=== PATIENT | female | born 1965 | race Caucasian/White ===

== ENCOUNTER 2018-09-30 09:16 | Outpatient (REF) | payer BC, SELFPAY ==
--- NOTE | 2018-09-30 08:30 | PAPFT_PTH ---
PATIENT: Susan Harp LOC: [facility] U#:[id number] AGE/SX: 53/F ROOM: RE09/30/[address]: Susana Meyers : 1965 BED: DIS: 09/30/2018 SPEC #: [id number] RECD: 10/01/18 12:40 STATUS: MARLON MCCOLLUM #: [id number] KWADWO: 09/30/18 08:[address]: Susana Meyers DEPT: [facility] Cytology RECD BY: Lori Beal Tissues: 1 - CX/ENDOCX FOR PAP SMEARS Procedures: PAP THIN PREP/UVM Screening HPV DNA PROBE Comments: [id number]
[2018-09-30 22:07] LABS: ALT 20 U/L (12-78); AST 20 U/L (15-37); Alkaline Phosphatase 81 U/L (46-116); Anion Gap 12.9 mmol/L (3-11); BUN 15 mg/dL (7-18); Bilirubin, Total 0.3 mg/dL (0.2-1.0); CO2 25.1 mmol/L (21.0-32.0); CREATININE 0.66 mg/dL (0.55-1.02); Calcium 9.1 mg/dL (8.5-10.1); Calculated LDL 117 mg/dL; Chloride 106 mmol/L (98-107); Cholesterol 227 mg/dL (50-200); Glucose 86 mg/dL (70-100); HDL Cholesterol 90 mg/dL (40-60); Potassium 5.2 mmol/L (3.5-5.1); Sodium 144 mmol/L (136-145); Total Protein 7.1 g/dL (6.4-8.2); Triglyceride 104 mg/dL (30-150)
== END 2018-09-30 09:36 ==
LOC: NCHCN 09:16
PROVIDERS: PCP Physician Assistant Medical; Visit Provider Physician Assistant Medical
DX: Z00.00 Encounter for general adult medical examination without abnormal findings (principal); Z13.220 Encounter for screening for lipoid disorders; Z13.228 Encounter for screening for other metabolic disorders; Z12.4 Encounter for screening for malignant neoplasm of cervix; Z11.51 Encounter for screening for human papillomavirus (HPV)
CPT/HCPCS: 80053; 80061; 83721; 88142; 87624

== ENCOUNTER 2018-10-18 07:00 | Outpatient (CLI) | payer BC, SELFPAY ==
--- NOTE | 2018-10-18 08:41 | DI.MRI_ITS ---
SYMPTOM/DIAGNOSIS: LUMBAR BACK PAIN WITH RADICULOPATHY M54.16 MRI LUMBAR SPINE: Routine noncontrast examination. No priors for comparison. The conus medullaris has a normal appearance and location. There is a left convex scoliotic curvature of the lumbar spine At L5-S1 there is disc desiccation. There is a diffuse disc bulge. There are hypertrophic changes of the facets. No significant central spinal canal stenosis seen. No right neural foraminal stenosis is present. Moderately severe left neural foraminal stenosis is present with compression of the exiting nerve root. At L4-L5 there is disc desiccation and a mild diffuse disc bulge. There are hypertrophic changes of the facets and ligamentum flavum causing mild narrowing of the central spinal canal. No significant neural foraminal stenosis is seen. At L3-L4 there is degenerative disc disease with a mild diffuse disc bulge. There are degenerative changes of the facets causing mild narrowing of the central spinal canal. No focal disc herniation is seen. No significant neural foraminal stenosis is present. At L2-L3 there is no focal disc herniation, central spinal canal or neural foraminal stenosis. At L1-L2 there is no focal disc herniation, central spinal canal or neural foraminal stenosis. IMPRESSION: 1. Moderately severe left convex scoliotic curvature of the lumbar spine. 2. Multi-level degenerative changes in the lumbar spine. 3. Degenerative changes at L5-S1 causing moderately severe left neural foraminal stenosis with compression of the exiting nerve root. Please see the above discussion for complete details.
== END 2018-10-18 07:20 ==
PROVIDERS: PCP Physician Assistant Medical; Visit Provider Physician Assistant Medical
DX: M54.16 Radiculopathy, lumbar region (principal); M41.86 Other forms of scoliosis, lumbar region; M47.27 Other spondylosis with radiculopathy, lumbosacral region; M51.16 Intervertebral disc disorders with radiculopathy, lumbar region; M99.83 Other biomechanical lesions of lumbar region
CPT/HCPCS: 72148

== ENCOUNTER 2018-10-21 00:57 | Outpatient (CLI) | payer BC, SELFPAY | END 2018-10-21 01:17 | PROVIDERS: PCP Physician Assistant Medical; Visit Provider Physician Assistant Medical | DX: R69 Illness, unspecified (principal) ==

== ENCOUNTER 2019-09-24 09:49 | Outpatient (CLI) | payer BC, SELFPAY ==
--- NOTE | 2019-09-24 | DI.RAD_ITS ---
EXAM: XR FOOT RT COMPLETE CLINICAL HISTORY: RT FOOT PAIN M79.671 TECHNIQUE: COMPARISON: No exams were available for comparison FINDINGS: Three views were obtained. There are mild degenerative changes of IP joints of the foot. Alignment appears unremarkable. No other significant bony or soft tissue abnormality seen. IMPRESSION:
== END 2019-09-24 10:09 ==
PROVIDERS: PCP Physician Assistant Medical; Visit Provider Physician Assistant Medical
DX: M79.671 Pain in right foot (principal); M19.071 Primary osteoarthritis, right ankle and foot
CPT/HCPCS: 73630

== ENCOUNTER 2021-03-23 01:59 | Outpatient (CLI) | payer BC, SELFPAY ==
--- NOTE | 2021-03-23 14:00 | DI.MAMMO_ITS ---
Exam(s) MAMMO SCREENING EXAM: MAMMO SCREENING CLINICAL HISTORY: SCREENING, HEALTH MAINTENANCE EXAM, Z00.8 TECHNIQUE: Bilateral full field digital CC and MLO mammographic images were obtained with 3D tomosyn thesis and utilizing computer aided detection (CAD). COMPARISON: Available for comparison. FINDINGS: Masses/Architectural Distortion: There are areas of asymmetric density in the upper breasts bilateral ly seen on the MLO views. These areas may represent fibroglandular tissue but spot compression views are requested for further evaluation. Microcalcifications: No suspicious pleomorphic-type are seen. Skin Thickening/Nipple Retraction: None. IMPRESSION: 1. Asymmetric densities in the upper lobes left and right breast seen on the MLO views. 2. Spot compression views are requested for further evaluation, ultrasound may be indicated at that t luiza. BI-RADS Category 0 - Assessment Incomplete: Need additional imaging evaluation Breast Density - Category C - Heterogeneously dense Breast density category C or D implies that the patient has dense breast tissue. Dense breast tissue is very common and is not abnormal but dense breast tissue can make it harder to find cancer on a ma mmogram. Also, dense breast tissue may increase their breast cancer risk. This information about the result of the mammogram report was provided to the patient to raise their awareness. Use this report when you speak with the patient about their risks for breast cancer, which includes their family hist ory. At that time, you may recommend for more screening tests (Ultrasound or MRI) as they might be us eful based on their risk. A negative radiographic report should not delay biopsy if a dominant or clinically suspicious mass is present. Up to ten percent of cancers are not identified on mammography. A negative report may reinforce clinical impression. Adenosis and dense breasts may obscure an underlying neoplasm. False positive reports average 6 to 10%. Patient will receive a letter notifying them of these results.
== END 2021-03-23 02:19 ==
PROVIDERS: PCP Physician Assistant Medical; Visit Provider Physician Assistant Medical
DX: Z12.31 Encounter for screening mammogram for malignant neoplasm of breast (principal); R92.8 Other abnormal and inconclusive findings on diagnostic imaging of breast
CPT/HCPCS: 77063; 77067

== ENCOUNTER 2021-04-12 01:19 | Outpatient (CLI) | payer BC, SELFPAY ==
--- NOTE | 2021-04-12 | DI.MRI_ITS ---
Exam(s) MR LUMBAR SPINE WO EXAM: MR LUMBAR SPINE WO CLINICAL HISTORY: LUMBAR BACK PAIN W/RADICULOPATHY M54.16. TECHNIQUE: Multiplanar multisequence MRI was performed. FINDINGS: MR examination lumbosacral spine was performed according to the usual protocol. There is a pronounce d left convex lumbar scoliosis. There are severe hypertrophic degenerative changes of the facet join ts at L5-S1 and moderate hypertrophic degenerative facet changes throughout the remaining lumbar spin e. The conus medullaris appears intact. There is no evidence of a central canal spinal stenosis or disc herniation in the region surveyed. There is mild neural foraminal narrowing at L4-5 and L5-S1 on the left. No other significant neural foraminal narrowing seen. IMPRESSION: Scoliosis and severe facet degenerative changes, particularly at L5-S1. Mild left-sided neural samantha inal narrowing at L4-5 and L5-S1. Little interval change in appearance of the spine in comparison wi th prior examination of September 2018. DATA REPOSITORY:
== END 2021-04-12 01:39 ==
PROVIDERS: PCP Physician Assistant Medical; Visit Provider Physician Assistant Medical
DX: M54.16 Radiculopathy, lumbar region (principal); M41.87 Other forms of scoliosis, lumbosacral region; M47.897 Other spondylosis, lumbosacral region
CPT/HCPCS: 72148

== ENCOUNTER 2021-04-13 01:22 | Outpatient (CLI) | payer BC, SELFPAY ==
--- NOTE | 2021-04-13 | DI.US_ITS ---
Exam(s) US BREAST LT COMPLETE US BREAST RT COMPLETE MG MAMMO SCREEN CALL BACK BI EXAM: MG MAMMO SCREEN CALL BACK BI AND BILTERAL COMPLETE BREAST ULTRASOUND CLINICAL HISTORY: ASYMMETRIC DENSITIES BILAT BREAST. TECHNIQUE: BILATERAL spot mammographic images obtained with 3D tomosynthesisand utilizing computer a ided detection (CAD). . Complete BILATERAL breast Ultrasound was also performed, including all 4 quadrants, the retroareolar regions, and both axillary regions. COMPARISON: Prior mammograms were reviewed. This additional imaging was performed due to findings described on the recent screening mammogram of 03/23/2021. FINDINGS: Additional mammographic views performed todayrender this area less concerning and similar to the prio r mammogram study of 2013.. Ultrasound performed today reveals no evidence of solid or significant cystic lesions in all 4 quadra nts of both breasts. Also no findings in the immediate retroareolar regions.. Both axillary regions were also scanned and negative for significant lymphadenopathy. IMPRESSION: Dense bilateral fibroglandular tissue. No obvious radiographic evidence of malignancy. Negative a bilateral complete breast ultrasound exam. Appropriate follow-up is to keep this patient on a yearly mammogram schedule, with earlier imaging i f a self detected breast change is noted.. The patient was informed of these findings and recommendations prior to leaving the department today. BI-RADS Category 2 - Benign Findings Breast Density - Category C - Heterogeneously dense Breast density Category C or D implies that the patient has dense breast tissue. Dense breast tissue can make it harder to find cancer on a mammogram. Dense breast tissue is also associated with an incr eased risk of breast cancer. This information about the result of the mammogram report was provided to the patient to raise their awareness. Use this report when you speak with the patient about their risks for breast cancer, which includes their family history. At that time, you may recommend additional screening tests (Ultrasoun d or MRI) as these tests may add significant information. A negative radiographic report should not delay biopsy if a dominant or clinically suspicious mass is present. Up to ten percent of cancers are not identified on mammography. A negative report may reinforce clinical impression. Adenosis and dense breasts may obscure an underlying neoplasm. False positive reports average 6 to 10%. Patient will receive a letter notifying them of these results.
== END 2021-04-13 01:42 ==
PROVIDERS: PCP Physician Assistant Medical; Visit Provider Physician Assistant Medical
DX: R92.8 Other abnormal and inconclusive findings on diagnostic imaging of breast (principal)
CPT/HCPCS: 76642; 77063; 77067

== ENCOUNTER 2021-11-02 09:52 | Outpatient (CLI) | payer BC, SELFPAY ==
--- NOTE | 2021-11-02 06:00 | DI.RAD_ITS ---
Exam(s) XR PAIN CLINIC LUMBAR SP 2V EXAM: XR PAIN CLINIC LUMBAR SP 2V CLINICAL HISTORY: Dx: Lumbar Spondylosis. TECHNIQUE: Fluoroscopy was provided for the referring physician for guidance with performing pain cl inic injection procedure. COMPARISON: No exams were available for comparison FINDINGS: Please see procedure note for details. Fluoro time: 47.4 seconds RADIATION DOSE DELIVERED: Marur=5.61 mGy
[2021-11-02 10:00] VITALS: BP 132/84; PULSE 93; RESP 20; TEMP 36.6; O2SAT 98
--- NOTE | 2021-11-02 10:33 | PDOC.PAIN ---
Pain Clinic Procedure Note Procedure Note Procedure Note: Lumbar/Sacral Medial Branch Blocks Susan Harp has been referred to the [facility] for lumbar/sacral medial branch blocks. COMMENTS: She was previously evaluated in our office. Pre-procedure pain VAS = 5/10. Dx: Lumbosacral spondylosis without myelopathy Patient was interviewed and the medical record reviewed. There were no medical, pharmacologic, radiographic or other structural contraindications to attempting fluoroscopically guided local anesthetic lumbar/sacral medial branch blocks. Risks and expected side effects as well as potential benefit of the procedure were reviewed and voiced concerns addressed. The printed consent form was signed and witnessed. Standard time-out procedure was performed. Patient was placed in the prone position on the fluoroscopy table and automated blood pressure cuff and pulse oximeter applied. The skin entry points for approaching the anatomic target points of the segmental medial branches of left L2, L3, L4, L5 were identified with anfluoroscopy and marked. Following thorough Chlorhexadine preparation of the skin and draping and 1% lidocaine infiltration of the skin entry points and subcutaneous tissues, a 25 gauge 3.5 spinal needle was placed under fluoroscopic guidance down on to the target point for each respective segmental medial branch.Position was confirmed in A/P, oblique and lateral views with 0.25ml of omnipaque 240. At this point I injected 0.5ml of 0.5% Bupivacaine at each sensory branch. Vital signs were stable throughout the procedure and were as recorded in the docflowsheet by the nursing staff. Follow up plans and appointments were discussed and was instructed to keep careful note of how the usual pain was modified by these injections. Specifically was asked to keep a pain diary for the next 24 hours using a numeric pain scale of 0-10 and report these results at the follow-up visit. Post procedure instruction was given as documented in the nursing documentation and having met discharge criteria. Patient was discharged from the [facility] Management [facility]. Based on the medial branches blocked today, if the patient has adequate relief and we are able to proceed to radiofrequency ablation, the treatment should result in the denervation of the left L3-L4, L4-L5, and L5-S1 FACET JOINTS. We would expect to denervate a total of 3 facets during the radiofrequency ablation. COMMENTS: Post-procedure pain VAS was 0/10. Adiel Mayer DO, MPH [facility]-Pain Management [facility] for [facility] CC: Susana Meyers
[2021-11-02] MEDS: Bupivacaine 0.5% Pres-Free 10 ML VIAL IJ (10:34)
[2021-11-02] MEDS: Omnipaque 240 MG/ML 50 ML BTL IJ (10:34)
[2021-11-02 10:36] VITALS: BP 133/76; PULSE 89; RESP 19; O2SAT 97
== END 2021-11-02 09:53 | disposition home or self-care (01) ==
LOC: PC 09:53
PROVIDERS: PCP Physician Assistant Medical; Visit Provider Preventive Medicine Occupational Medicine
DX: M47.817 Spondylosis without myelopathy or radiculopathy, lumbosacral region (principal)
CPT/HCPCS: 64493; 64494; 64495; 72100; Q9967

== ENCOUNTER 2021-12-01 09:43 | Outpatient (CLI) | payer BC, SELFPAY ==
--- NOTE | 2021-12-01 06:00 | DI.RAD_ITS ---
Exam(s) XR PAIN CLINIC LUMBAR SP 2V EXAM: XR PAIN CLINIC LUMBAR SP 2V CLINICAL HISTORY: Dx: Lumbar Spondylosis TECHNIQUE: 2D and realtime digital imaging was performed. Radiologist not present. CONTRAST MATERIAL: None. COMPARISON: No exams were available for comparison FINDINGS: Fluoroscopy was provided for pain management therapy. Please refer to procedure report or details. Total fluoroscopy time 39 seconds Cumulative dose: Ka,r=4.40 mGy IMPRESSION: RADIATION DOSE DELIVERED:
[2021-12-01 09:50] VITALS: BP 143/83; PULSE 101; RESP 20; TEMP 36.4; O2SAT 98
--- NOTE | 2021-12-01 10:18 | PDOC.PAIN_ITS ---
Pain Clinic Procedure Note Procedure Note Procedure Note: Lumbar/Sacral Medial Branch Blocks Susan Harp has been referred to the [facility] for lumbar/sacral medial branch blocks. COMMENTS: She did very well with her first LMBBs on 11/02/21. Pre-procedure pain VAS was 4/10. Dx: Lumbosacral spondylosis without myelopathy Patient was interviewed and the medical record reviewed. There were no medical, pharmacologic, radiographic or other structural contraindications to attempting fluoroscopically guided local anesthetic lumbar/sacral medial branch blocks. Risks and expected side effects as well as potential benefit of the procedure were reviewed and voiced concerns addressed. The printed consent form was signed and witnessed. Standard time-out procedure was performed. Patient was placed in the prone position on the fluoroscopy table and automated blood pressure cuff and pulse oximeter applied. The skin entry points for approaching the anatomic target points of the segmental medial branches of the left L2, L3, L4 and L5DR were identified with anfluoroscopy and marked. Following thorough Chlorhexadine preparation of the skin and draping and 1% lidocaine infiltration of the skin entry points and subcutaneous tissues, a 22 gauge spinal needle was placed under fluoroscopic guidance down on to the target point for each respective segmental medial branch.Position was confirmed in A/P, oblique and lateral views with 0.25ml of omnipaque 240. At this point I injected 0.5ml of 2% Lidocaine at each segmental sensory nerve. Vital signs were stable throughout the procedure and were as recorded in the docflowsheet by the nursing staff. Follow up plans and appointments were discussed and was instructed to keep careful note of how the usual pain was modified by these injections. Specifically was asked to keep a pain diary for the next 24 hours using a numeric pain scale of 0-10 and report these results at the follow-up visit. Post procedure instruction was given as documented in the nursing documentation and having met discharge criteria. Patient was discharged from the [facility]. Based on the medial branches blocked today, if the patient has adequate relief and we are able to proceed to radiofrequency ablation, the treatment should result in the denervation of the left L3-L4, L4-L5 and L5-S1 FACET JOINTS. We would expect to denervate a total of 3 facets during the radiofrequency ablation. COMMENTS: Post-procedure pain VAS was 0/10. Adiel Mayer DO, MPH [facility]-Pain Management [facility] CC: Susana Meyers
[2021-12-01] MEDS: Lidocaine 2% Pres-Free 5 ML VIAL IJ (10:24)
[2021-12-01 10:25] VITALS: BP 143/90; PULSE 92; RESP 19; O2SAT 98
[2021-12-01] MEDS: Omnipaque 240 MG/ML 50 ML BTL IJ (10:25)
== END 2021-12-01 09:44 | disposition home or self-care (01) ==
LOC: PC 09:43
PROVIDERS: PCP Physician Assistant Medical; Visit Provider Preventive Medicine Occupational Medicine
DX: M47.817 Spondylosis without myelopathy or radiculopathy, lumbosacral region (principal)
CPT/HCPCS: 64493; 64494; 72100; Q9967

== ENCOUNTER 2021-12-22 10:11 | Emergency (ER) | payer BC, SELFPAY ==
--- NOTE | 2021-12-22 10:15 | DI.RAD_ITS ---
Exam(s) XR CHEST 2V PA LATERAL EXAM: XR CHEST 2V PA LATERAL CLINICAL HISTORY: Cough, COPD TECHNIQUE: 2D digital imaging was performed. COMPARISON: No exams were available for comparison FINDINGS: HEART: Normal size. Aorta: PULMONARY VASCULATURE: Normal. LUNGS: Hyperinflated. Fibrotic changes. No superimposed infiltrate.. PLEURAL SPACE: No pleural effusion or pneumothorax. BONE:Severe scoliosis IMPRESSION: No acute abnormality. DATA REPOSITORY: RADIATION DOSE DELIVERED:
[2021-12-22 10:16] VITALS: BP 135/83; PULSE 100; RESP 17; TEMP 36.5; O2SAT 98
--- NOTE | 2021-12-22 10:28 | ED.GENADUL_ITS ---
Discharge Plan Disposition Patient Disposition: HOME Condition: Stable Discharge Details Clinical Impression: Acute bronchitis with COPD Primary Care Provider: Susana Meyers ED Provider: Alexis Bland Home Meds and New Rx's Prescriptions: New doxycycline hyclate 100 mg capsule 100 mg PO BID 10 Days Qty: 20 0RF prednisone 50 mg tablet 50 mg PO DAILY 5 Days Qty: 5 0RF Continued ibuprofen 200 mg Tablet 200 mg PO Q6H PRN fluoxetine [Prozac] 40 MG capsule 40 mg PO DAILY Label Comments: Taking a total of 60mg QD fluoxetine 20 mg capsule 20 mg PO DAILY Label Comments: Taking a total of 60mg QD venlafaxine 75 mg Tablet 75 mg PO DAILY albuterol sulfate 8.5 GM HFA aerosol inhaler 2 puff Inhalation Q4H PRN PRNQty: 1 0RF (DME) AeroChamber Plus Z Stat Sm Msk 1 EACH spacer 1 ea Miscellaneous DAILY PRN Qty: 1 0RF Discharge Instructions Instructions: Acute Bronchitis (ED) Additional Instructions: Home to rest today. Small, frequent to the fluids to maintain hydration Please take prednisone as prescribed until finished. Doxycycline as prescribed for its entire course. Continue efforts to decrease tobacco use. Return to the emergency room for any acute concern. Follow-up with regular doctor if not improved in 5 to 7 days time. Medical Decision Making This is a 56-year-old female, smoker with a history of COPD who presents with cough, congestion, mild shortness of breath over 1 month's time. She has not had chest pain. She is oxygenating normally, speaking in full sentences and does not demonstrate wheezing on exam. Differential diagnosis includes mild exacerbation of COPD, bronchitis, must rule out underlying pneumonia. Patient referred for x-ray without evidence of focal infiltrate or pneumothorax. I will place her on a burst of steroid as well as oral antibiotics. She is stable and appropriate for discharge at this time HPI General Mode of arrival: ambulatory . Date/Time Provider Initiated Documentation: 12/22/21 10:14 . Limitations to Documentation: no limitations . Information obtained by: patient . History of Present Illness 56 year old F presents to the emergency department with the chief complaint of Cough, congestion, mild shortness of breath, described as mild, and is localized to the chest. Patient reports no radiation. Patient started experiencing this week(s) and it has been intermittent. No relieving factors improve symptom(s), No exacerbating factors reported . Patient notes cough; denies chest pain and fever/chills. Patient did receive the following treatments prior to arrival, none Related Data Home Medications Medication Instructions Recorded Confirmed albuterol sulfate 90 mcg/actuation 2 puff inhalation Q4H PRN PRN ##1 03/30/14 12/01/21 aerosol inhaler inhalational spacing device ##1 03/30/14 09/14/21 (AeroChamber Plus Z Stat Small Mask) Prozac 40 mg capsule (fluoxetine) 40 mg PO DAILY 09/04/17 09/14/21 fluoxetine 20 mg capsule 20 mg PO DAILY 05/03/21 09/14/21 ibuprofen 200 mg tablet 200 mg PO Q6H PRN 09/01/21 12/01/21 venlafaxine 75 mg tablet 75 mg PO DAILY 10/24/21 12/01/21 doxycycline hyclate 100 mg capsule 100 mg PO BID 10 days #20 caps 12/22/21 prednisone 50 mg tablet 50 mg PO DAILY 5 days #5 tabs 12/22/21 Previous Rx's Medication Instructions Recorded albuterol sulfate 90 mcg/actuation 2 puff inhalation Q4H PRN PRN ##1 03/30/14 aerosol inhaler inhalational spacing device ##1 03/30/14 (AeroChamber Plus Z Stat Small Mask) doxycycline hyclate 100 mg capsule 100 mg PO BID 10 days #20 caps 12/22/21 prednisone 50 mg tablet 50 mg PO DAILY 5 days #5 tabs 12/22/21 Allergies Allergy/AdvReac Type Severity Reaction Status Date / Time No Known Allergies Allergy Unverified 12/01/21 09:49 General Stated Complaint: RespSymp SHI: 4 Review of Systems Narrative: Using home albuterol. No high fevers. Congested with intermittent production of sputum. Denies chest pain. 6 systems reviewed and otherwise negative PFSH All Active Problems (Updated 12/22/21 @ 10:48 by Alexis Bland MD) Acute bronchitis with COPD (Acute) Lumbosacral spondylosis without myelopathy (Acute) COPD (chronic obstructive pulmonary disease) (Acute) Screening for colon cancer (Acute) Medical History Cyst, jaw Depression Guaiac positive stools Lumbar radiculopathy Ovarian cyst Rectal bleeding Weight loss Surgical History left oophorectomy and salpingectomy (cysts) tubal ligation Family History Sister Heart disease Valvular heart disease Daughter No problems noted. Daughter No problems noted. Social History Smoking/Tobacco Use Status: Current every day Tobacco Type: cigarettes Smoking packs per day: 0.25 Smoking cigarettes per day: 5.0 Years smoked: 42 Smoking pack-years: 10.50 Smoking risk assessment performed?: Yes Alcohol Intake: current Alcohol Intake frequency: holidays/special occasions only Drug use: Never Substance use type: does not use Do you feel safe at home: Yes Do you feel safe in your relationship?: Yes Exam Narrative Exam Narrative: GEN: awake, alert, oriented 3. Pleasant, well groomed, interactive. HEAD: Normocephalic, atraumatic ENT: Mucous membranes moist, oropharynx unremarkable, External ear exam unremarkable EYES: PERRL, EOMI NECK: Full ROM, no MARIAH, no menigismus CHEST/RESP: Nontender, clear to auscultation bilateral, slightly diminished but no wheezing, cough noted. CARDIOVASCULAR: RRR, no murmur, rub karely. 2+ Rad pulse bilateral ABDOMEN: Soft, nontender, no mass. +Bowel sounds EXT: Full ROM, no edema, no rash Neuro: Grossly normal neurologic exam, conversant, interactive. Psych: Speech fluent, thoughts congruent, affect normal Course Vital Signs Vital signs: Vital Signs Temperature 36.5 C 12/22/21 10:16 Pulse 100 H 12/22/21 10:16 Respiratory Rate 17 12/22/21 10:16 Blood Pressure 135/83 12/22/21 10:16 Pulse Oximetry 98 12/22/21 10:16 Temperature 36.5 C 12/22/21 10:16 Temperature Source Temporal Artery Scan 12/22/21 10:16 Pulse 100 H 12/22/21 10:16 Respiratory Rate 17 12/22/21 10:16 Respiratory Effort Non-Labored 12/22/21 10:21 Blood Pressure 135/83 12/22/21 10:16 Blood Pressure Position Sitting 12/22/21 10:16 Pulse Oximetry 98 12/22/21 10:16 Oxygen Delivery Method Room Air 12/22/21 10:16 Oxygen Flow Rate 0 12/22/21 10:16 Pain Level 0 12/22/21 10:16
== END 2021-12-22 11:09 | disposition home or self-care (01) ==
PROVIDERS: Emergency Provider Emergency Medicine; PCP Physician Assistant Medical
DX: J44.0 Chronic obstructive pulmonary disease with (acute) lower respiratory infection (principal); J20.9 Acute bronchitis, unspecified; F17.210 Nicotine dependence, cigarettes, uncomplicated
CPT/HCPCS: 99283; 71046; 99284

== ENCOUNTER 2022-01-18 10:47 | Outpatient (CLI) | payer BC, SELFPAY ==
--- NOTE | 2022-01-18 06:00 | DI.RAD_ITS ---
Exam(s) XR PAIN CLINIC LUMBAR SP 2V EXAM: XR PAIN CLINIC LUMBAR SP 2V CLINICAL HISTORY: Dx: Lumbar Spondylosis TECHNIQUE: 2D and realtime digital imaging was performed. Radiologist not present. CONTRAST MATERIAL: None. COMPARISON: No exams were available for comparison FINDINGS: Fluoroscopy was provided for pain management therapy. Please refer to procedure report or details. Cumulative dose: Ka,r=7.24 mGy IMPRESSION: RADIATION DOSE DELIVERED:
[2022-01-18 10:51] VITALS: BP 128/76; PULSE 103; RESP 20; TEMP 36.2; O2SAT 97
[2022-01-18] MEDS: Midazolam 2 MG/2 ML VIAL IVP (11:34)
[2022-01-18] MEDS: fentaNYL 100 MCG/2 ML VIAL IVP (11:34)
[2022-01-18] MEDS: Lactated Ringers 500 ML 80 ML IV (11:35)
[2022-01-18 12:04] VITALS: BP 131/86; PULSE 94; RESP 21; O2SAT 98
[2022-01-18] MEDS: Bupivacaine 0.5% Pres-Free 10 ML VIAL IJ (12:14)
[2022-01-18] MEDS: Lidocaine 2% Pres-Free 5 ML VIAL IJ (12:14)
[2022-01-18] MEDS: methylPREDNISolone ACETATE 40 MG/ML VIAL IJ (12:14)
--- NOTE | 2022-01-18 12:29 | PDOC.PAIN ---
Date of service: 01/18/22 Time of Service: 12:33 Pain Clinic Procedure Note Procedure Note Procedure Note: Left Lumbar Radiofrequency with Coolief Machine PROCEDURE NOTE Date of Service: January 18, 2022 Patient: Susan Harp Provider: Adiel Mayer DO, MPH Pre Operative Diagnosis: Lumbosacral Spondylosis without Myelopathy Post Operative Diagnosis: Same Pre procedure pain; VAS= 6/10 PROCEDURE: Radiofrequency Ablation of medial branches - LT L2 L3 L4 L5 and lateral branch of the left S1. Susan Harp was brought into the fluoroscopy suite and positioned into the prone position on the fluoroscopy table and allowed to adjust to a position of comfort. A grounding pad was placed on the left thigh. The lumbar region was widely prepped with a chloraprep solution, allowed to air dry and draped in standard sterile surgical fashion. Local anesthesia was provided by [4 mL of 2% Lidocaine delivered with a 25g needle. A 17g 100 mm radiofrequency introducer needle was placed to the planned anatomic targets guided with intermittent fluoroscopy with a perpendicular approach to terminally place at the junction of the superior articular process and the transverse process of the left L3 L4 L5, the base of the sacral ala on the left for the L5 medial branch nerve and the area between base of the sacral ala to the S1 foramen on the left. The stylets were removed and radiofrequency probes with a 4mm active tip were then inserted. Needle tip position of the probes was verified in the AP, oblique, and lateral views. At each site, the medial branch nerve was stimulated at 2 Hz to a maximum 1-2 volts determined to finalize safe needle and electrode placement. The patient was awake and responsive during this portion of the procedure. Each target was anesthetized with 1-2 mL of 2% Lidocaine for anesthesia for lesioning and then each target was lesioned at 80 degrees Celsius for 2 minutes and 30 seconds. Tissue impedences were noted to be between 250 and 500 Ohms. Electrodes and needles were then removed and bandages placed over the needle placement sites, the patient then returned to the supine position on a stretcher and transported to the recovery room without hemodynamic, neurologic, or allergic reactions. Fluoroscopic images were printed for hard copy recording and digitally archived. POST PROCEDURE EVALUATION: IMPRESSION: 1. Summary of procedure. Medication given is documented in the MAR. 2. The patient will be contacted in 1-3 weeks 3. Estimated Blood Loss: <5 mls 4. Fluoroscopy time: Documented in the EMR. Follow up plans and appointments were discussed with the Susan . Post procedure instruction was given as documented in nursing documentation and having met discharge criteria, Susan was [facility] from the [facility]. COMMENTS: No apparent complications. Post-procedure pain: VAS= 2/10. F/U with our office as needed. Adiel Mayer DO, MPH [facility]
== END 2022-01-18 10:48 | disposition home or self-care (01) ==
LOC: PC 10:47
PROVIDERS: PCP Physician Assistant Medical; Visit Provider Preventive Medicine Occupational Medicine
DX: M47.817 Spondylosis without myelopathy or radiculopathy, lumbosacral region (principal)
CPT/HCPCS: 64635; 64636; 72100; J1030; J2250; J3010

== ENCOUNTER 2022-02-16 10:33 | Emergency (ER) | payer BC, SELFPAY ==
--- OUTSIDE RECORDS SUMMARY | 2022-02-16 10:37 | XMS_ITS | Encounter Summary ---
:1965 Author Organization [facility] [place] [address] Care Team Providers Name Role Phone Unavailable Primary Care Provider Unavailable Encounter Details Date Type Department Care Team Description 04/12/2021 Ancillary Procedure Radiology Library at Hanny Meyers [facility] [address] [place] [address] [place] [address] [phone] Social History Tobacco Use Types Packs/Day Years Used Date Smoking Tobacco: Never Assessed Sex Assigned at Date Recorded Not on file documented as of this encounter Plan of Treatment Not on filedocumented as of this encounter Procedures Procedure Name Priority Date/Time Associated Diagnosis Comme nts FILM LIBRARY Routine 04/12/2021 12:00 AM Results for this STORAGE ONLY MR EST procedure ar e in SPINE the results section. documented in this encounter Results Film Library- Storage Only MR Spine (04/12/2021 12:00 AM EST) Specimen (Source) Anatomical Location Collection Method / Collectio n Time Received Time / Laterality Volume Narrative RAFAEL - 04/20/2021 9:43 AM EST This exam is auto-finalizing. It's purpo se is for storage only. Susana BULLARD Kel FILM LIBRARY ORDERABLES Performing Organization Address City/State/ZIP Code Phon e Number [place], [place] documented in this encounter Visit Diagnoses Not on filedocumented in this encounter
--- OUTSIDE RECORDS SUMMARY | 2022-02-16 10:37 | XMS_ITS | Encounter Summary ---
:1965 Author Organization [facility] [place] [address] Care Team Providers Name Role Phone Unavailable Primary Care Provider Unavailable Encounter Details Date Type Department Care Team Description 08/13/2017 Ancillary Procedure Radiology at [facility] Anita Pulido [address] [place] [address] JESSICA LEE [phone] DR ALMANZAR-GWEN Joseph [place], [place] [address] Social History Tobacco Use Types Packs/Day Years Used Date Smoking Tobacco: Never Assessed Sex Assigned at Date Recorded Not on file documented as of this encounter Plan of Treatment Not on filedocumented as of this encounter Procedures Procedure Name Priority Date/Time Associated Diagnosis Comme nts FILM LIBRARY Routine 08/13/2017 12:00 AM Results for this STORAGE ONLY DX EDT procedure ar e in SPINE the results section. documented in this encounter Results Film Library- Storage Only DX Spine (08/13/2017 12:00 AM EDT) Specimen (Source) Anatomical Location Collection Method / Collectio n Time Received Time / Laterality Volume Narrative ABDI HALL - 10/23/2018 1:20 PM EDT This exam is auto-finalizing. It's purpo se is for storage only. Anita Pulido MD G FILM LIBRARY ORDERABLES Performing Organization Address City/State/ZIP Code Phon e Number RAFAEL RAFAEL [place], [place] documented in this encounter Visit Diagnoses Not on filedocumented in this encounter
--- OUTSIDE RECORDS SUMMARY | 2022-02-16 10:37 | XMS_ITS | Encounter Summary ---
:1965 Author Organization [facility] [place] [address] Care Team Providers Name Role Phone Unavailable Primary Care Provider Unavailable Encounter Details Date Type Department Care Team Description 10/18/2018 Ancillary Procedure Radiology at [facility] Anita Pulido [address] [place] [address] JESSICA LEE [phone] DR ALMANZAR-GWEN Joseph [place], [place] [address] Social History Tobacco Use Types Packs/Day Years Used Date Smoking Tobacco: Never Assessed Sex Assigned at Date Recorded Not on file documented as of this encounter Plan of Treatment Not on filedocumented as of this encounter Procedures Procedure Name Priority Date/Time Associated Diagnosis Comme nts FILM LIBRARY Routine 10/18/2018 12:00 AM Results for this STORAGE ONLY MR EDT procedure ar e in SPINE the results section. documented in this encounter Results Film Library- Storage Only MR Spine (10/18/2018 12:00 AM EDT) Specimen (Source) Anatomical Location Collection Method / Collectio n Time Received Time / Laterality Volume Narrative ABDI HALL - 10/23/2018 1:01 PM EDT This exam is auto-finalizing. It's purpo se is for storage only. Anita Pulido MD Kel FILM LIBRARY ORDERABLES Performing Organization Address City/State/ZIP Code Phon e Number RAFAEL RAFAEL [place], [place] documented in this encounter Visit Diagnoses Not on filedocumented in this encounter
--- OUTSIDE RECORDS SUMMARY | 2022-02-16 10:37 | XMS_ITS | Clinical Summary ---
:1965 Author Organization [facility] [place] [address] Care Team Providers Name Role Phone Susana Meyers Primary Care Provider Social History Tobacco Use Types Packs/Day Years Used Date Smoking Tobacco: Never Assessed Sex Assigned at Date Recorded Not on file Plan of Treatment Health Maintenance Due Date Last Done Comments Hepatitis B vaccine (0-59 yrs) (1 of 3 - 3-dose series) 06/16/18 62 Covid-19 Vaccine (#1) 1965 HIV screen 06/16/1981 Hepatitis C Screening 06/16/1981 Tdap adult 06/16/1982 Tetanus vaccine 06/16/1982 HPV test 06/16/1993 PAP Smear 06/16/1993 Breast Cancer Share Decision Needed 2003 Colonoscopy 06/16/2008 Breast Cancer screening 06/16/2013 Zoster vaccine (1 of 2) 06/16/2013 Advance Directive 06/16/2018 Influenza (Flu) vaccine (1 of 1 - Influenza standard 12/01/2021 series) Insurance Payer Benefit Plan Subscriber ID Effective Dates Phone Address Type / Group [facility] [id number] 2021-[facility] [phone] [address] [facility] [address] [place] [address] Care Teams [employer]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
--- NOTE | 2022-02-16 10:39 | ED.GENADUL_ITS ---
Discharge Plan Disposition Patient Disposition: Home Condition: Stable Discharge Details Clinical Impression: Bronchitis Primary Care Provider: Susana Meyers ED Provider: Mariana Conrad Home Meds and New Rx's Prescriptions: New Combivent Respimat 20-100 mcg/actuation mist 1 puff inhalation Q6H Qty: 4 0RF prednisone 20 mg tablet 40 mg PO DAILY 5 Days Qty: 10 0RF doxycycline hyclate 100 mg capsule 100 mg PO BID Qty: 14 0RF Continued ibuprofen 200 mg Tablet 200 mg PO Q6H PRN fluoxetine [Prozac] 40 MG capsule 40 mg PO DAILY Label Comments: Taking a total of 60mg QD fluoxetine 20 mg capsule 20 mg PO DAILY Label Comments: Taking a total of 60mg QD venlafaxine 75 mg Tablet 75 mg PO DAILY albuterol sulfate 8.5 GM HFA aerosol inhaler 2 puff Inhalation Q4H PRN PRNQty: 1 0RF (DME) AeroChamber Plus Z Stat Sm Msk 1 EACH spacer 1 ea Miscellaneous DAILY PRN Qty: 1 0RF Discharge Instructions Instructions: Acute Bronchitis (ED) Additional Instructions: Yogurt daily while on antibiotics Use Combivent as prescribed instead of your albuterol, use spacer Take the prednisone as prescribed Take that doxycycline for 7 days Follow-up with your primary care physician in 48 to 72 hours for reassessment and return earlier should he have new or worsening complaints Referrals: Susana Meyers PA [Primary Care Provider] - Discharge Data Discharge Date/Time-TO BE ENTERED AT DEPARTURE: 02/16/22 12:23 Medical Decision Making Patient appears well, will place on Decadron, Combivent, doxycycline secondary to COPD and suspected bronchitis No hypoxia, denies any chest pain At this time I think she stable for discharge home Return precautions reviewed and patient expressed understanding pulmonology referral should she have persistent symptoms Recheck in 24 to 48 hours recommended Medical Records Medical records reviewed: Yes I reviewed the patient's medical records. Lab Data Lab results reviewed: Yes I reviewed the patient's lab results. Sign Out No HPI General Date/Time Provider Initiated Documentation: 02/16/22 10:39 . HPI Narrative: This 56-year-old female with history of COPD and tobacco abuse presents with report of shortness of breath and cough for the past 2 weeks. She denies any fever or chills. She states her pain is exacerbated with coughing. She denies any constant chest discomfort. She states her cough is productive. She denies any calf pain or swelling. She denies any recent flights, surgeries, long dr parada. She states she feels short of breath but that is partially alleviated with albuterol. Related Data Home Medications Medication Instructions Recorded Confirmed albuterol sulfate 90 mcg/actuation 2 puff inhalation Q4H PRN PRN ##1 03/30/14 02/16/22 aerosol inhaler inhalational spacing device ##1 03/30/14 09/14/21 (AeroChamber Plus Z Stat Small Mask) Prozac 40 mg capsule (fluoxetine) 40 mg PO DAILY 09/04/17 09/14/21 fluoxetine 20 mg capsule 20 mg PO DAILY 05/03/21 09/14/21 ibuprofen 200 mg tablet 200 mg PO Q6H PRN 09/01/21 02/16/22 venlafaxine 75 mg tablet 75 mg PO DAILY 10/24/21 02/16/22 doxycycline hyclate 100 mg capsule 100 mg PO BID #14 caps 02/16/22 ipratropium 20 mcg-albuterol 100 1 puff inhalation Q6H #4 grams 02/16/22 mcg/actuation mist for inhalation (Combivent Respimat) prednisone 20 mg tablet 40 mg PO DAILY 5 days #10 tabs 02/16/22 Previous Rx's Medication Instructions Recorded albuterol sulfate 90 mcg/actuation 2 puff inhalation Q4H PRN PRN ##1 03/30/14 aerosol inhaler inhalational spacing device ##1 03/30/14 (AeroChamber Plus Z Stat Small Mask) doxycycline hyclate 100 mg capsule 100 mg PO BID #14 caps 02/16/22 ipratropium 20 mcg-albuterol 100 1 puff inhalation Q6H #4 grams 02/16/22 mcg/actuation mist for inhalation (Combivent Respimat) prednisone 20 mg tablet 40 mg PO DAILY 5 days #10 tabs 02/16/22 Allergies Allergy/AdvReac Type Severity Reaction Status Date / Time No Known Allergies Allergy Unverified 02/16/22 10:43 General SHI: 4 Review of Systems All systems reviewed & are unremarkable except as noted in HPI and below PFSH All Active Problems (Updated 02/16/22 @ 11:55 by ALEAH Cash) Bronchitis (Acute) Lumbosacral spondylosis without myelopathy (Acute) COPD (chronic obstructive pulmonary disease) (Acute) Screening for colon cancer (Acute) Medical History Cyst, jaw Depression Guaiac positive stools Lumbar radiculopathy Ovarian cyst Rectal bleeding Weight loss Surgical History left oophorectomy and salpingectomy (cysts) tubal ligation Family History Sister Heart disease Valvular heart disease Daughter No problems noted. Daughter No problems noted. Social History Smoking/Tobacco Use Status: Current every day Tobacco Type: cigarettes Smoking packs per day: 0.25 Smoking cigarettes per day: 5.0 Years smoked: 42 Smoking pack-years: 10.50 Smoking risk assessment performed?: Yes Alcohol Intake: current Alcohol Intake frequency: holidays/special occasions only Drug use: Never Substance use type: does not use Do you feel safe at home: Yes Do you feel safe in your relationship?: Yes Exam Const General: cooperative, comfortable and no acute distress Orientation: alert and oriented x3 Eyes Pupils: PERRL Resp Effort & Inspection: normal respiratory effort Auscultation: clear to auscultation bilaterally Cardio Rate: regular rate Rhythm: regular rhythm GI Inspection: normal to inspection Skin General skin exam: no rashes or lesions noted Neuro General: patient alert and patient oriented x3 Extrem Other: No calf swelling or tenderness
[2022-02-16 10:40] VITALS: BP 130/79; PULSE 84; RESP 18; TEMP 36.9; O2SAT 98
--- NOTE | 2022-02-16 11:15 | DI.RAD_ITS ---
Exam(s) XR PORTABLE CHEST AP EXAM: XR PORTABLE CHEST AP CLINICAL HISTORY: shortness of breath, sick for 2 weeks. TECHNIQUE: 2D digital imaging was performed. COMPARISON: CR XR CHEST 2V PA LATERAL from 12/22/2021 FINDINGS: LUNGS: Clear. No pleural abnormality seen. HEART: Normal. MEDIASTINUM: Normal. OTHER FINDINGS: Marked thoracic scoliosis. IMPRESSION: No acute pulmonary findings. DATA REPOSITORY: RADIATION DOSE DELIVERED: Total DLP
== END 2022-02-16 12:23 | disposition home or self-care (01) ==
PROVIDERS: Emergency Provider Physician Assistant; PCP Physician Assistant Medical
DX: J20.9 Acute bronchitis, unspecified (principal); J44.0 Chronic obstructive pulmonary disease with (acute) lower respiratory infection; F17.210 Nicotine dependence, cigarettes, uncomplicated; R06.02 Shortness of breath
CPT/HCPCS: 99283; 71045

== ENCOUNTER 2022-05-02 12:57 | Emergency (ER) | payer BC, SELFPAY ==
--- NOTE | 2022-05-02 13:00 | RT.EKG_ITS ---
APPROVED REPORT Exam: Resting ECG Reason for Exam: SOB Patient Location: E HR:90 bpm ECG Measurements Heart Rate 90 AXIS ME 128 P 72 QRSd 77 QRS 78 QT 343 T 75 QTc 421 Conclusion Sinus rhythm...normal P axis, V-rate 60- 99
[2022-05-02 13:03] VITALS: BP 136/79; PULSE 97; RESP 20; O2SAT 97
--- NOTE | 2022-05-02 13:19 | ED.GENADUL_ITS ---
Discharge Plan Disposition Patient Disposition: Home Condition: Stable Discharge Details Clinical Impression: COPD exacerbation Primary Care Provider: Susana Meyers ED Provider: Gucci Baca Home Meds and New Rx's Prescriptions: New prednisone 20 mg tablet 60 mg PO DAILY 4 Days Qty: 12 0RF amoxicillin-pot clavulanate 875-125 mg tablet 1 tab PO BID Qty: 14 0RF Continued ibuprofen 200 mg Tablet 200 mg PO Q6H PRN venlafaxine 75 mg Tablet 75 mg PO DAILY albuterol sulfate 8.5 GM HFA aerosol inhaler 2 puff Inhalation Q4H PRN PRNQty: 1 0RF (DME) AeroChamber Plus Z Stat Sm Msk 1 EACH spacer 1 ea Miscellaneous DAILY PRN Qty: 1 0RF Discharge Instructions Instructions: COPD (Chronic Obstructive Pulmonary Disease) (ED) Additional Instructions: if not improving by next week follow up with your primary care provider if you feel more ill or have worsening shortness of breath return to the emergency department Medical Decision Making 56 yo female with hx of copd who continues to smoke who comes in with cc of cough for 2 weeks. She has been using her home inhalers with minimal relief so came here for an evaluation. She states very mild shortness of breath when coughing, no chest pain, no fevers/chills. No leg pain or swelling. She arrives stable speaking in full sentences with intermittent dry cough. She has no jvd, no leg swelling, no calf tenderness. She has diffuse wheezing in both lungs in all lung arreola. History and physical consistent with copd exacerbation, will treat with neb, steroids, and obtain fluvid and cxr. No findings on exam to suggest chf and no chest pain to suggest acs. No findings on exam to suggest dvt, no hypoxia, no pleuritic chest pain so doubt PE at this time. labs and imaging on my read unremarkable, she feels much better after neb and steroids, has mild apical wheezing bilaterally otherwise clear lungs. Will d/c on prednisone and augmentin, advised to f/u with pcp, return precautions given Differential Diagnosis Differential Diagnosis: copd, uri, pneumonia Medical Records Medical records reviewed: Yes I reviewed the patient's medical records. Imaging Data Radiologic Study: Attestation: I personally reviewed and interpreted this imaging study as follows: Imaging: X-Ray My impression: no acute findings Lab Data Lab results reviewed: Yes I reviewed the patient's lab results. ECG Data Attestation: I personally reviewed and interpreted this ECG (s) as follows: Prior ECG tracings: not available for review Interpretation: sinus rhythm, rate of 90, pr 128, no acute st t wave ischemic findings HPI General Mode of arrival: ambulatory . Date/Time Provider Initiated Documentation: 05/02/22 12:57 . Limitations to Documentation: no limitations . Information obtained by: patient . History of Present Illness 56 year old F presents to the emergency department with the chief complaint of cough, described as moderate, Patient started experiencing this week(s) (2) and it has been constant. No relieving factors improve symptom(s), No exacerbating factors reported . Patient notes denies chest pain and fever/chills. Related Data Home Medications Medication Instructions Recorded Confirmed albuterol sulfate 90 mcg/actuation 2 puff inhalation Q4H PRN PRN ##1 03/30/14 05/02/22 aerosol inhaler inhalational spacing device ##1 03/30/14 05/02/22 (AeroChamber Plus Z Stat Small Mask) ibuprofen 200 mg tablet 200 mg PO Q6H PRN 09/01/21 05/02/22 venlafaxine 75 mg tablet 75 mg PO DAILY 10/24/21 05/02/22 amoxicillin 875 mg-potassium 1 tab PO BID #14 tabs 05/02/22 clavulanate 125 mg tablet prednisone 20 mg tablet 60 mg PO DAILY 4 days #12 tabs 05/02/22 Previous Rx's Medication Instructions Recorded albuterol sulfate 90 mcg/actuation 2 puff inhalation Q4H PRN PRN ##1 03/30/14 aerosol inhaler inhalational spacing device ##1 03/30/14 (AeroChamber Plus Z Stat Small Mask) amoxicillin 875 mg-potassium 1 tab PO BID #14 tabs 05/02/22 clavulanate 125 mg tablet prednisone 20 mg tablet 60 mg PO DAILY 4 days #12 tabs 05/02/22 Allergies Allergy/AdvReac Type Severity Reaction Status Date / Time No Known Allergies Allergy Unverified 02/16/22 10:43 General Stated Complaint: RespSymp SHI: 3 Review of Systems All systems reviewed & are unremarkable except as noted in HPI and below Constitutional Constitutional: Denies chills, Denies fever(s) and Denies weakness Cardiovascular Cardiovascular: Denies chest pain Respiratory Respiratory: Denies cough Gastrointestinal Gastrointestinal: Denies abdominal pain, Denies nausea and Denies vomiting Integumentary/Breasts Skin/Breast: Denies rash Neurologic Neurologic: Denies weakness PFSH All Active Problems (Updated 05/02/22 @ 15:02 by Gucci Baca MD) COPD exacerbation (Acute) Lumbosacral spondylosis without myelopathy (Acute) COPD (chronic obstructive pulmonary disease) (Acute) Screening for colon cancer (Acute) Medical History Cyst, jaw Depression Guaiac positive stools Lumbar radiculopathy Ovarian cyst Rectal bleeding Weight loss Surgical History left oophorectomy and salpingectomy (cysts) tubal ligation Family History Sister Heart disease Valvular heart disease Daughter No problems noted. Daughter No problems noted. Social History Smoking/Tobacco Use Status: Current every day Tobacco Type: cigarettes Smoking packs per day: 0.25 Smoking cigarettes per day: 5.0 Years smoked: 42 Smoking pack-years: 10.50 Smoking risk assessment performed?: Yes Alcohol Intake: current Alcohol Intake frequency: holidays/special occasions only Drug use: Never Substance use type: does not use Do you feel safe at home: Yes Do you feel safe in your relationship?: Yes Exam Const General: no acute distress Orientation: alert HENMO Head: normal to inspection Ears: external ears normal General nose exam: external nose normal Mouth: moist mucous membranes Eyes General: appearance normal, both eyes and all related structures Neck Neck: normal visual inspection Resp Effort & Inspection: normal respiratory effort and able to speak in complete sentences Auscultation: wheezes Cardio Rate: regular rate Heart Sounds: no murmurs Skin General skin exam: no rashes or lesions noted Neuro General: patient alert and patient oriented x3 Extrem General: normal to inspection Psych Mental Status: mental status grossly normal Course Vital Signs Vital signs: Vital Signs Pulse 97 H 05/02/22 13:03 Respiratory Rate 20 05/02/22 13:03 Blood Pressure 136/79 05/02/22 13:03 Pulse Oximetry 97 05/02/22 13:03 Pulse 97 H 05/02/22 13:03 Respiratory Rate 20 05/02/22 13:03 Blood Pressure 136/79 05/02/22 13:03 Blood Pressure Position Sitting 05/02/22 13:03 Pulse Oximetry 97 05/02/22 13:03 Oxygen Delivery Method Room Air 05/02/22 13:03 Oxygen Flow Rate 0 05/02/22 13:03 Pain Level 0 05/02/22 13:03
[2022-05-02 13:37] LABS: Abs Immature Grans 0.02 10^3/uL (0.0-0.06); Absolute Basophil Count 0.02 10^3/uL (0.0-0.2); Absolute Eosinophil Count 0.18 10^3/uL (0.0-0.7); Absolute Lymphocyte Count 2.26 10^3/uL (1.2-3.4); Absolute Monocyte Count 0.57 10^3/uL (0.1-0.8); Absolute Neutrophil Count 3.57 10^3/uL (1.2-6.7); Basophils % 0.3; Eosinophils % 2.7; HCT 42.7 % (36.0-46.0); HGB 14.1 g/dL (11.2-15.7); Immature Grans % 0.3; Lymphocytes % 34.1; MCH 31.7 pg (27.0-33.0); MCV 96 fL (80-95); MPV 9.2 fL (8.0-11.0); Monocytes % 8.6; Platelet Count 292 10^3/uL (130-400); RBC 4.45 10^6/uL (3.93-5.22); RDW 12.3 % (11.7-14.6); RDW-SD 43.5 fL; WBC 6.62 10^3/uL (4.4-10.8)
[2022-05-02 13:52] LABS: ALT 21 U/L (14-59); AST 20 U/L (15-37); Albumin 3.9 g/dL (3.4-5.0); Alkaline Phosphatase 97 U/L (46-116); Anion Gap 7.9 mmol/L (3-11); BUN 12 mg/dL (7-18); Bilirubin, Total 0.3 mg/dL (0.2-1.0); CO2 28.1 mmol/L (21.0-32.0); CREATININE 0.8 mg/dL (0.55-1.02); Calcium 9.2 mg/dL (8.5-10.1); Chloride 105 mmol/L (98-107); Estimated GFR 85.35 (mL/min/1.73m2); Glucose 116 mg/dL (74-106); Potassium 3.9 mmol/L (3.5-5.1); Sodium 141 mmol/L (136-145); Total Protein 7.3 g/dL (6.4-8.2)
--- NOTE | 2022-05-02 14:00 | DI.RAD_ITS ---
Exam(s) XR PORTABLE CHEST AP EXAM: XR PORTABLE CHEST AP CLINICAL HISTORY: cough TECHNIQUE: 2D digital imaging was performed of the chest. One image was obtained. An AP view was ob tained. COMPARISON: CR XR PORTABLE CHEST AP from 02/16/2022 FINDINGS: MEDIASTINUM: Normal. HEART: Normal. PULMONARY VASCULATURE: Normal. LUNGS: No focal consolidating infiltrates are seen. PLEURAL SPACE: No pleural effusion or pneumothorax. BONE:Within normal limits for the patient's age. There is again seen a prominent right convex thoraci c scoliosis. OTHER FINDINGS:Normal. IMPRESSION: No acute pulmonary findings. DATA REPOSITORY: RADIATION DOSE DELIVERED:
[2022-05-02 14:12] LABS: COVID-19 PCR Negative (Negative); Influenza A PCR Negative (Negative); Influenza B PCR Negative (Negative); RSV PCR Negative (Negative); Source Nasopharynx
[2022-05-02] MEDS: Albuterol/Ipratropium 3 ML UPD VIAL UPD (14:17)
[2022-05-02] MEDS: methylPREDNISolone SUCC 125 MG VIAL IVP (14:17)
[2022-05-02 15:06] VITALS: BP 124/76; PULSE 91; RESP 18; O2SAT 98
== END 2022-05-02 15:13 | disposition home or self-care (01) ==
PROVIDERS: Emergency Provider Emergency Medicine; PCP Physician Assistant Medical
DX: J44.1 Chronic obstructive pulmonary disease with (acute) exacerbation (principal); Z20.822 Contact with and (suspected) exposure to COVID-19
CPT/HCPCS: 36415; 80053; 87637; 93005; 94640; 96374; 99284; 71045; 85025; 93010; 99285; J2930; J7620

== ENCOUNTER 2022-05-30 11:53 | Outpatient (REF) | payer BC, SELFPAY ==
[2022-05-30 19:25] LABS: Hemoglobin A1C 5.7 % (<5.7)
== END 2022-05-30 11:54 | disposition home or self-care (01) ==
LOC: NCHCN 11:53
PROVIDERS: PCP Physician Assistant Medical; Visit Provider Physician Assistant Medical
DX: R53.83 Other fatigue (principal); Z13.1 Encounter for screening for diabetes mellitus
CPT/HCPCS: 83036; 84443

== ENCOUNTER 2022-08-07 03:59 | Outpatient (CLI) | payer BC, SELFPAY ==
[2022-08-07] MEDS: Albuterol HFA 18 GM 200 PUFF INH IH (10:42)
[2022-08-07] MEDS: Inhaler, Assist Device 1 EACH MC (10:43)
--- NOTE | 2022-08-08 11:02 | W.PFT ---
Date of service: 08/07/22 Time of Service: 10:05 Pulmonary Function Test Result Indications: Dyspnea Interpretation Spirometry: There is moderate airflow limitation. There is a significant bronchodilator response. Lung Volumes: There is air trapping Diffusion Capacity: Normal diffusion Airway Pressure: Increased airway resistance. Impression Moderate airflow obstruction with a bronchodilator response and normal diffusion. In the correct clinical context, this could represent chronic bronchitis (COPD), uncontrolled asthma or asthma-COPD overlap syndrome. Clinical Correlation therefore is recommended.
== END 2022-08-07 04:00 | disposition home or self-care (01) ==
LOC: RT 03:59
PROVIDERS: PCP Physician Assistant Medical; Visit Provider Physician Assistant Medical
DX: R06.00 Dyspnea, unspecified (principal); R53.83 Other fatigue; J44.1 Chronic obstructive pulmonary disease with (acute) exacerbation
CPT/HCPCS: 94060; 94726; 94729

== ENCOUNTER 2023-05-15 12:58 | Outpatient (REF) | payer BC, MEDICAID, SELFPAY ==
[2023-05-15 16:28] LABS: ALT 22 U/L (14-59); AST 22 U/L (15-37); Albumin 4.2 g/dL (3.4-5.0); Alkaline Phosphatase 92 U/L (46-116); Anion Gap 10.4 mmol/L (3-11); BUN 11 mg/dL (7-18); Bilirubin, Total 0.4 mg/dL (0.2-1.0); CO2 23.6 mmol/L (21.0-32.0); CREATININE 0.6 mg/dL (0.55-1.02); Calcium 9.5 mg/dL (8.5-10.1); Calculated LDL 133 mg/dL (<100); Chloride 104 mmol/L (98-107); Cholesterol 244 mg/dL (<200); Estimated GFR 103.33 (mL/min/1.73m2); Glucose 88 mg/dL (74-106); HDL Cholesterol 88 mg/dL (40-60); Potassium 4.7 mmol/L (3.5-5.1); Sodium 138 mmol/L (136-145); Triglyceride 118 mg/dL (<150)
[2023-05-15 17:27] LABS: Hemoglobin A1C 5.3 % (<5.7)
== END 2023-05-15 12:59 | disposition home or self-care (01) ==
LOC: NCHCN 12:58
PROVIDERS: PCP Physician Assistant Medical; Visit Provider Physician Assistant Medical
DX: Z00.00 Encounter for general adult medical examination without abnormal findings (principal); R73.03 Prediabetes; Z13.220 Encounter for screening for lipoid disorders
CPT/HCPCS: 80053; 80061; 83036

== ENCOUNTER 2023-07-21 10:45 | Emergency (ER) | payer BC, MEDICAID, SELFPAY ==
--- NOTE | 2023-07-21 10:45 | DI.RAD_ITS ---
Exam(s) XR FOOT LT COMPLETE EXAM: XR FOOT LT COMPLETE CLINICAL HISTORY: pain. TECHNIQUE: 2D digital imaging was performed. Three views. COMPARISON: No exams were available for comparison FINDINGS: BONES: No acute fracture is present. Slight deformity of the 5th metatarsal consistent with old heal ed fracture. No bony destructive lesion is seen. JOINTS: No dislocation present. SOFT TISSUE: Normal. IMPRESSION: No acute abnormality. DATA REPOSITORY: RADIATION DOSE DELIVERED:
[2023-07-21 10:46] VITALS: BP 127/71; PULSE 122; RESP 20; TEMP 37.1; O2SAT 96
--- NOTE | 2023-07-21 10:58 | ED.GENADUL_ITS ---
Discharge Plan Disposition Patient Disposition: Home Condition: Stable Discharge Details Clinical Impression: Foot pain, left Primary Care Provider: Susana Meyers ED Provider: Gucci Baca Home Meds and New Rx's Prescriptions: New prednisone 20 mg tablet 60 mg PO DAILY 5 Days Qty: 15 0RF Continued ibuprofen 200 mg Tablet 200 mg PO Q6H PRN fluticasone propion-salmeterol [Advair HFA] 115-21 mcg/actuation HFA aerosol inhaler 2 puff inhalation BID Qty: 12 12RF venlafaxine 75 mg Tablet 75 mg PO DAILY Spiriva Respimat 2.5 mcg/actuation mist 2 puff inhalation DAILY albuterol sulfate 8.5 GM HFA aerosol inhaler 2 puff Inhalation Q4H PRN PRNQty: 1 0RF (DME) AeroChamber Plus Z Stat Sm Msk 1 EACH spacer 1 ea Miscellaneous DAILY PRN Qty: 1 0RF Discharge Instructions Additional Instructions: Your x-ray did not show any concerning findings at this time. If symptoms continue this week follow-up with your primary care provider When sitting or laying down trying to keep the foot elevated If you feel more ill or have severe worsening pain or new symptoms such as difficulty breathing return to the emergency department for reevaluation HPI General Mode of arrival: ambulatory . Date/Time Provider Initiated Documentation: 07/21/23 10:52 . Limitations to Documentation: no limitations . Information obtained by: patient . History of Present Illness 58 year old F presents to the emergency department with the chief complaint of left foot pain, described as moderate, Quality is described as aching, Patient started experiencing this week(s) (1) and it has been constant. No relieving factors improve symptom(s), No exacerbating factors reported . Patient notes no other symptoms.; denies fever/chills. Patient did receive the following treatments prior to arrival, none Related Data Home Medications Medication Instructions Recorded Confirmed albuterol sulfate 90 mcg/actuation 2 puff inhalation Q4H PRN PRN ##1 03/30/14 07/21/23 aerosol inhaler inhalational spacing device ##1 03/30/14 07/21/23 (AeroChamber Plus Z Stat Small Mask) ibuprofen 200 mg tablet 200 mg PO Q6H PRN 09/01/21 07/21/23 venlafaxine 75 mg tablet 75 mg PO DAILY 10/24/21 07/21/23 tiotropium bromide 2.5 2 puff inhalation DAILY 09/22/22 07/21/23 mcg/actuation mist for inhalation (Spiriva Respimat) fluticasone propionate 115 2 puff inhalation BID #12 grams 09/28/22 07/21/23 mcg-salmeterol 21 mcg/actuation HFA inhaler (Advair HFA) prednisone 20 mg tablet 60 mg (3 x 20 mg) PO DAILY 5 days 07/21/23 #15 tabs Previous Rx's Medication Instructions Recorded albuterol sulfate 90 mcg/actuation 2 puff inhalation Q4H PRN PRN ##1 03/30/14 aerosol inhaler inhalational spacing device ##1 03/30/14 (AeroChamber Plus Z Stat Small Mask) fluticasone propionate 115 2 puff inhalation BID #12 grams 09/28/22 mcg-salmeterol 21 mcg/actuation HFA inhaler (Advair HFA) prednisone 20 mg tablet 60 mg (3 x 20 mg) PO DAILY 5 days 07/21/23 #15 tabs Allergies Allergy/AdvReac Type Severity Reaction Status Date / Time No Known Allergies Allergy Unverified 07/21/23 10:50 General Stated Complaint: Orthopedic SHI: 4 Review of Systems All systems reviewed & are unremarkable except as noted in HPI and below Constitutional Constitutional: Denies chills, Denies fever(s) and Denies weakness Cardiovascular Cardiovascular: Denies chest pain and Denies dyspnea Respiratory Respiratory: Denies cough and Denies dyspnea Gastrointestinal Gastrointestinal: Denies abdominal pain, Denies nausea and Denies vomiting Musculoskeletal Musculoskeletal: Denies joint swelling Integumentary/Breasts Skin/Breast: Denies rash Neurologic Neurologic: Denies weakness Exam Const General: no acute distress Orientation: alert HENMT Head: normal to inspection Ears: external ears normal General nose exam: external nose normal Mouth: moist mucous membranes Eyes General: appearance normal, both eyes and all related structures Neck Neck: normal visual inspection Resp Effort & Inspection: normal respiratory effort and able to speak in complete sentences Cardio Rate: regular rate Skin General skin exam: no rashes or lesions noted Neuro General: patient alert and patient oriented x3 Extrem General: normal to inspection Psych Mental Status: mental status grossly normal Course Vital Signs Vital signs: Vital Signs Temperature 37.1 C 04/20/24 10:46 Pulse 122 H 07/21/23 10:46 Respiratory Rate 20 07/21/23 10:46 Blood Pressure 127/71 07/21/23 10:46 Pulse Oximetry 96 07/21/23 10:46 Temperature 37.1 C 07/21/23 10:46 Pulse 122 H 07/21/23 10:46 Respiratory Rate 20 07/21/23 10:46 Respiratory Effort Normal 07/21/23 10:49 Blood Pressure 127/71 07/21/23 10:46 Blood Pressure Position Sitting 07/21/23 10:46 Pulse Oximetry 96 07/21/23 10:46 Oxygen Delivery Method Room Air 07/21/23 10:46 Oxygen Flow Rate 0 07/21/23 10:46 Medical Decision Making 58-year-old female with a history of COPD, comes in with nontraumatic left foot pain for a week. She says she has pain at the base of the great toe and hurts to put pressure on it. She denies any fevers or systemic symptoms, on exam she appears well in no distress, has no swelling of the foot intact sensation and pulses. No visible or palpable deformity she is tender just proximal to the right great toe. No erythema or warmth. Suggest plantar fasciitis less likely gout, no findings to suggest infectious etiology. Will obtain an x-ray to exclude a stress fracture. X-rays unremarkable, patient stable, suspect plantar fasciitis will trial a short course of steroids. Advised to follow-up with her PCP and return precautions given Differential Diagnosis Differential Diagnosis: Plantar fasciitis, stress fracture Imaging Data Radiologic Study: Attestation: I personally reviewed and interpreted this imaging study as follows: Imaging: X-Ray My impression: No acute findings Quality:SDOH Health Related Social Needs: No Data to Display PFSH All Active Problems (Updated 07/21/23 @ 11:23 by Gucci Baca MD) Foot pain, left (Acute) Asthma-COPD overlap syndrome (Acute) Former smoker (Acute) Lumbar back pain (Acute) with radiculopathy Smoker (Acute) Prediabetes (Acute) Lumbosacral spondylosis without myelopathy (Acute) COPD (chronic obstructive pulmonary disease) (Acute) Screening for colon cancer (Acute) Medical History Cyst, jaw Depression Guaiac positive stools Lumbar radiculopathy Ovarian cyst Rectal bleeding Weight loss Surgical History left oophorectomy and salpingectomy (cysts) tubal ligation Family History Sister Heart disease Valvular heart disease Daughter No problems noted. Daughter No problems noted. Social History (Updated 09/22/22 @ 09:13 by Sherin Bhardwaj) Smoking/Tobacco Use Status: Current every day Tobacco Type: cigarettes Smoking packs per day: 0.25 Smoking cigarettes per day: 5.0 Years smoked: 42 Smoking pack-years: 10.50 Smoking risk assessment performed?: Yes Alcohol Intake: current Alcohol Intake frequency: holidays/special occasions only Drug use: Never Substance use type: does not use Do you feel safe at home: Yes Do you feel safe in your relationship?: Yes Additional Social history: Down to 3 cigarettes a day.
--- NOTE | 2023-07-21 11:31 | DI.VRAD_ITS ---
PROCEDURE INFORMATION: Exam: XR Left Foot Exam date and time: 07/21/2023 11:15 AM Age: 58 years old Clinical indication: Pain; Foot; Left TECHNIQUE: Imaging protocol: Radiologic exam of the left foot. Views: 3 or more views. Non-weightbearing AP, oblique and lateral images. COMPARISON: No relevant prior studies available. FINDINGS: Bones/joints: Old healed fracture of the fifth metatarsal. No acute fracture or dislocation. The joint spaces are preserved. Soft tissues: Unremarkable. IMPRESSION: No acute findings. Dictated and Authenticated by: Dave Camacho MD. Ordering:JEREMY Duckworth MD
== END 2023-07-21 12:06 | disposition home or self-care (01) ==
PROVIDERS: Emergency Provider Emergency Medicine; PCP Physician Assistant Medical
DX: M79.672 Pain in left foot (principal)
CPT/HCPCS: 99283; 73630

== ENCOUNTER 2024-06-30 13:23 | Outpatient (REF) | payer BC, SELFPAY ==
--- NOTE | 2024-06-30 09:15 | PAPFT_PTH ---
PATIENT: Susan Harp LOC: [facility]#:[id number] AGE/SX: 59/F ROOM: RE06/30/[address]: Susana Meyers : 1965 BED: DIS: 06/30/2024 SPEC #: [id number] RECD: 06/30/24 16:23 STATUS: MARLON REKim #: [id number] KWADWO: 06/30/24 09:[address]: Susana Meyers DEPT: [facility] Cytology RECD BY: Mariana Glover Tissues: 1 - CX/ENDOCX FOR PAP SMEARS Procedures: PAP THIN PREP/UVM Screening HPV DNA PROBE Comments: [id number] (HPV 16 & 18/45)
== END 2024-06-30 13:24 | disposition home or self-care (01) ==
LOC: NCHCN 13:23
PROVIDERS: PCP Physician Assistant Medical; Visit Provider Physician Assistant Medical
DX: Z11.51 Encounter for screening for human papillomavirus (HPV) (principal); Z01.419 Encounter for gynecological examination (general) (routine) without abnormal findings
CPT/HCPCS: 88142; 87624

== ENCOUNTER 2024-07-08 00:54 | Outpatient (CLI) | payer BC, SELFPAY ==
--- NOTE | 2024-07-08 | DI.US_ITS ---
Exam(s) US PELVIS TRANSVAGINAL EXAM: US PELVIS TRANSVAGINAL CLINICAL HISTORY: PELVIC MASS , R19.00 INTRA ABD AND PELVIC SWELLING TECHNIQUE: Transabdominal and transvaginal imaging was performed using standard protocol. FINDINGS: A transabdominal images are limited by an empty bladder. UTERUS: Anteverted. cm Endometrium: 1 mm, single wall thickness. Fluid is noted within the endometrium with a thickness of 5 mm. Myometrium: Unremarkable. Cervix: Unremarkable. OVARIES: Right: not visualized Left: Not visualized. Prior oophorectomy. CUL-DE-SAC: Free fluid: None. IMPRESSION: Fluid within the endometrial cavity. No focal endometrial abnormalities are identified. There is no endometrial thickening. The ovaries were not visualized. DATA REPOSITORY:
--- NOTE | 2024-07-08 | DI.RAD_ITS ---
Exam(s) XR SHOULDER RT COMPLETE 2+V EXAM: XR SHOULDER RT COMPLETE 2+V CLINICAL HISTORY: PAIN OF RIGHT SHOULDER JOINT, M25.511. TECHNIQUE: 2D digital imaging was performed. Five views. COMPARISON: No exams were available for comparison FINDINGS: BONES: No acute fracture is present. No bony destructive lesion is seen. JOINTS: No dislocation present. Spurring at the distal end of the clavicle. The glenohumeral joint space is maintained. SOFT TISSUE: There is a somewhat linear calcification anterior to the humeral head visible on the axi llary view which could indicate calcific tendinosis. IMPRESSION: Inferior spurring at the AC joint. Calcific tendinosis. DATA REPOSITORY: RADIATION DOSE DELIVERED:
== END 2024-07-08 01:14 ==
LOC: DI 00:54
PROVIDERS: PCP Physician Assistant Medical; Visit Provider Physician Assistant Medical
DX: M25.511 Pain in right shoulder (principal); M75.31 Calcific tendinitis of right shoulder; R19.09 Other intra-abdominal and pelvic swelling, mass and lump
CPT/HCPCS: 73030; 76830; 76856

== ENCOUNTER 2024-07-21 01:58 | Outpatient (CLI) | payer BC, SELFPAY ==
--- NOTE | 2024-07-21 | DI.MRI_ITS ---
Exam(s) MR LUMBAR SPINE WO EXAM: MR LUMBAR SPINE WO CLINICAL HISTORY: LBP, M54.50. TECHNIQUE: Multiplanar multisequence MRI of the Lumbar spine was performed. MR MR LUMBAR SPINE WO from 04/12/2021 FINDINGS: Bones: The last intervertebral disc space is designated the L5/S1 level for the numbering purpose of this examination. The vertebral body heights are well maintained. There is a marked left convex tho racolumbar scoliosis present. Minimal degenerative endplate signal changes are seen at L4-5 and L5-S 1. Cord: The conus tip ends at the L1 level. It is of normal size and signal intensity. T12-L1: No disc herniations or bulges are present. No central spinal canal or neural foraminal stenos is. L1-2: No disc herniations or bulges are present. No central spinal canal or neural foraminal stenosis . L2-3: No disc herniations or bulges are present. No central spinal canal or neural foraminal stenosis . L3-4: No disc herniations or bulges are present. There are degenerative changes of the facets. This causes mild narrowing of the central spinal canal.There is mild right neural foraminal narrowing. No significant left neural foraminal stenosis. L4-5: There is a diffuse disc bulge present. There are degenerative changes of the facets. The find ings cause moderate central spinal canal stenosis. There is mild bilateral neural foraminal narrowin g. L5-S1: No disc herniations or bulges are present. There are degenerative changes of the facets presen t. No significant central spinal canal stenosis is seen. There is moderate left neural foraminal st enosis. No significant right neural foraminal stenosis is present. Soft tissues: The visualized SI joints and sacrum are well maintained. The paraspinal soft tissues ar e unremarkable. IMPRESSION: 1. Marked left convex thoracolumbar scoliosis. 2. Multilevel degenerative changes in the lumbar spine particularly from L3-4 through L5-S1 as descri bed above. DATA REPOSITORY:
--- NOTE | 2024-07-21 08:13 | DI.MAMMO_ITS ---
Exam(s) MAMMO SCREENING EXAM: MAMMO SCREENING CLINICAL HISTORY: Screening, Z12.31 TECHNIQUE: Bilateral full field digital CC and MLO mammographic images were obtained with 3D tomosyn thesis and utilizing computer aided detection (CAD). COMPARISON: Available for comparison. FINDINGS: Masses/Architectural Distortion: There is an asymmetric focus in the upper right breast on the MLO vi ew 6 cm from the nipple. This may represent overlying fibroglandular tissue. But a spot compression views requested for further evaluation. Microcalcifications: No suspicious pleomorphic-type are seen. Skin Thickening/Nipple Retraction: None. IMPRESSION: 1. Focal asymmetry in the upper right breast on the MLO view. 2. This area should be further evaluated with a spot compression view. Ultrasound may be indicated a t that time. BI-RADS Category 0 - Incomplete: Need additional imaging evaluation Breast Density - Category C - Heterogeneously dense Breast density category C or D implies that the patient has dense breast tissue. Dense breast tissue is very common and is not abnormal but dense breast tissue can make it harder to find cancer on a ma mmogram. Also, dense breast tissue may increase their breast cancer risk. This information about the result of the mammogram report was provided to the patient to raise their awareness. Use this report when you speak with the patient about their risks for breast cancer, which includes their family hist ory. At that time, you may recommend for more screening tests (Ultrasound or MRI) as they might be us eful based on their risk. A negative radiographic report should not delay biopsy if a dominant or clinically suspicious mass is present. Up to ten percent of cancers are not identified on mammography. A negative report may reinforce clinical impression. Adenosis and dense breasts may obscure an underlying neoplasm. False positive reports average 6 to 10%. Patient will receive a letter notifying them of these results.
== END 2024-07-21 02:18 ==
LOC: DI 01:58
PROVIDERS: PCP Physician Assistant Medical; Visit Provider Physician Assistant Medical
DX: Z12.31 Encounter for screening mammogram for malignant neoplasm of breast (principal); M41.85 Other forms of scoliosis, thoracolumbar region; M51.360 Other intervertebral disc degeneration, lumbar region with discogenic back pain only
CPT/HCPCS: 77063; 77067; 72148

== ENCOUNTER 2024-07-24 01:25 | Outpatient (CLI) | payer BC, SELFPAY ==
--- NOTE | 2024-07-24 | DI.MAMMO_ITS ---
Exam(s) MG MAMMO SCREEN CALL BACK UNI US BREAST RT LIMITED EXAM: MG MAMMO SCREEN CALL BACK UNI and U/S breast RT limited CLINICAL HISTORY: F/U ABNL MAMMO, R92.8, FOCAL ASYMMETRY UPPER RT BREAST,. TECHNIQUE: Craniocaudal and mediolateral oblique Full Field Digital Mammography views of the right b reast with Computer Aided Diagnosis followed by Tomosynthesis and limited right breast ultrasound. COMPARISON: Comparison is made with prior examinations. FINDINGS: Mammography/Tomosynthesis: Masses/Architectural Distortion: The area of concern does not persist on the additional views. Microcalcifictions: No suspicious pleomorphic-type are seen. Skin Thickening/Nipple Retraction: None. Limited right breast US: Echotexture: Normal appearance of the glandular tissue. Shadowing: No suspicious foci. Cyst: None. Solid lesions: None seen. Ductal dilation: None. IMPRESSION: 1. No evidence of malignancy is noted. 2. Unless there is more urgent need, follow-up screening mammography is recommended, as per [place] [employer] guidelines. 3. The findings were discussed with the patient on the date of the examination. BI-RADS Category 1 - Negative Breast Density - Category C - Heterogeneously dense Breast density Category C or D implies that the patient has dense breast tissue. Dense breast tissue can make it harder to find cancer on a mammogram. Dense breast tissue is also associated with an incr eased risk of breast cancer. This information about the result of the mammogram report was provided to the patient to raise their awareness. Use this report when you speak with the patient about their risks for breast cancer, which includes their family history. At that time, you may recommend additional screening tests (Ultrasoun d or MRI) as these tests may add significant information. A negative radiographic report should not delay biopsy if a dominant or clinically suspicious mass is present. Up to ten percent of cancers are not identified on mammography. A negative report may reinforce clinical impression. Adenosis and dense breasts may obscure an underlying neoplasm. False positive reports average 6 to 10%. Patient will receive a letter notifying them of these results.
== END 2024-07-24 01:45 ==
LOC: DI 01:25
PROVIDERS: PCP Physician Assistant Medical; Visit Provider Physician Assistant Medical
DX: Z12.31 Encounter for screening mammogram for malignant neoplasm of breast (principal); R92.333 Mammographic heterogeneous density, bilateral breasts
CPT/HCPCS: 76642; 77063; 77067

== ENCOUNTER 2024-08-14 09:13 | Outpatient (CLI) | payer BC, SELFPAY ==
[2024-08-14] VITALS (7 sets, daily range): BP systolic 127–148; BP diastolic 81–88; PULSE 90–102; RESP 20–27; TEMP 36.7; O2SAT 97–99
--- NOTE | 2024-08-14 10:03 | DI.RAD_ITS ---
Exam(s) XR PAIN CLINIC LUMBAR SP 2V EXAM: XR PAIN CLINIC LUMBAR SP 2V CLINICAL HISTORY: DX: Lumbar Spondylosis TECHNIQUE: 2D and realtime digital imaging was performed. CONTRAST MATERIAL: Refer to procedure report. COMPARISON: No exams were available for comparison FINDINGS: Fluoroscopy was provided for Dr. Mayer during the performance of a lumbar medial branch block. Rosalie vizcarra refer to the procedure report for complete details. Ka,r=4.83 mGy IMPRESSION: RADIATION DOSE DELIVERED: 0.0 0.0 0
[2024-08-14] MEDS: Bupivacaine 0.5% Pres-Free 10 ML VIAL IJ (10:05)
[2024-08-14] MEDS: Omnipaque 240 MG/ML 50 ML BTL IJ (10:05)
[2024-08-14] MEDS: Nerve Block Tray 1 EACH MC (10:06)
--- NOTE | 2024-08-14 14:34 | PDOC.PAIN_ITS ---
Date of service: 08/14/24 Time of Service: 10:00 Pain Managment Procedure Note Procedure Note Procedure Note: PROCEDURE NOTE Left Confirmatory Lumbar Medial Branch Blocks Date of Service: August 14, 2024 Patient: Susan Harp Provider: Adiel Mayer DO, MPH Susan Harp has been referred to the [facility] for lumbar medial branch blocks. Pre-operative diagnosis: Lumbar Spondylosis without Myelopathy ICD-10 M47.816 Post-operative diagnosis: Same Pre-procedure pain: VAS= 8/10 COMMENTS: She did well in the past with her left L3-L5 RFA, getting over 2 years of relief. Susan? was interviewed and the medical records were reviewed. There were no medical, pharmacologic, radiographic or other structural contraindications to attempting fluoroscopically guided local anesthetic lumbar medial branch blocks. Risks and potential side effects were discussed. I also discussed the potential benefit(s) of the procedure with Susan, and voiced concerns were addressed. After Susan was completely informed about the procedure, the printed consent form was signed. A standard time-out procedure was performed. Susan was placed in the prone position on the fluoroscopy table. Automated blood pressure cuff and pulse oximeter were applied. The skin entry points for approaching the anatomic target points of the segmental medial branches of left L3,L4,L5 were identified with fluoroscopy and marked. The skin at the target site area was thoroughly prepared with Chlorhexadine. The skin was then draped. Next, a 25 gauge 3.5 spinal needle was placed under fluoroscopic guidance down on to the target point (the articular pillar) for each respective segmental medial branch. Position was confirmed in A/P and lateral views. Aspiration revealed no blood or clear fluid. Next, 0.25ml of omnipaque 240 was injected at each level. No contrast following a vascular or neural pattern was visualized under continuous fluoroscopy. Next, 0.25 ml of preservative-free 0.5% bupivicaine was injected at each level. There was no unusual discomfort expressed by Susan. The needles were withdrawn without difficulty. (49 mls of Om nipaque was wasted) Susan was observed and was without hemodynamic, neurologic, or allergic reactions.? Fluoroscopic images were digitally archived. Provacative testing using the Modified Muse's facet loading test- Left side Directly before the block VAS (0-10) = 8/10 Five minutes after the block VAS (0-10) = 4/10 Percentage relief obtained with this diagnostic block 50% Any improved physical functioning directly after the blocks? Able to move her low back with ease Follow up plans and appointments were discussed with Susan. Susan was instructed to keep careful note of how the usual pain was modified by these injections. Specifically, to keep a pain diary for the next 4 hours using a numeric pain scale of 0-10 and report these results. Post procedure instruction was given as documented in the nursing documentation and having met discharge criteria, the patient was [facility] from the [facility]. Based on the medial branches blocked today, if they patient has adequate relief and we are able to proceed to radiofrequency ablation, the treatment should result in the denervation of the left L4-L5 and L5-S1 facet joints. We would expect to denervate a total of 2 facets during the radiofrequency ablation. COMMENTS: No apparent complications. Post-procedure pain: VAS= 4/10 Susan will call back with 0-4 hour post-procedure pain scores. I personally performed the entire procedure. ADIEL MAYER DO, MPH ABPM&R-subspecialty board certification in Pain Medicine [facility] Coding Conscious Sedation used for procedure: No CPT Codes: LMBB (includes Fluoro) Lumbar/Sacral, 2nd lvl - 06736 ([id number] ~G) LT - LEFT SIDE LMBB (includes Fluoro) Lumbar/Sacral, single lvl - 26422 ([id number] ~G) Additional Codes: Date of Service (64626) Date of service: 08/14/24
== END 2024-08-14 09:14 | disposition home or self-care (01) ==
LOC: PC 09:13
PROVIDERS: PCP Physician Assistant Medical; Visit Provider Preventive Medicine Occupational Medicine
DX: M47.816 Spondylosis without myelopathy or radiculopathy, lumbar region (principal)
CPT/HCPCS: 64493; 64494; 72100; J0665; Q9967

== ENCOUNTER 2024-08-17 10:07 | Emergency (ER) | payer BC, SELFPAY ==
[2024-08-17 10:27] VITALS: BP 137/86; PULSE 105; RESP 22; TEMP 36.9; O2SAT 93
--- NOTE | 2024-08-17 10:44 | W.ED.GENAD ---
Discharge Plan Disposition Patient Disposition: Home Condition: Stable Discharge Details Clinical Impression: Acute exacerbation of chronic obstructive pulmonary disease (COPD) Primary Care Provider: Susana Meyers ED Provider: Mary Jo Goff Home Meds and New Rx's Prescriptions: New doxycycline hyclate 100 mg capsule 100 mg PO BID Qty: 14 0RF prednisone 50 mg tablet 50 mg PO DAILY Qty: 5 0RF No Action fluticasone propion-salmeterol [Advair HFA] 115-21 mcg/actuation HFA aerosol inhaler 2 puff inhalation BID Qty: 12 12RF meloxicam 7.5 mg tablet 7.5 mg PO BID PRN venlafaxine 75 mg capsule,extended release 24hr 75 mg PO DAILY bupropion HCl [Wellbutrin SR] 100 mg tablet sustained-release 12 hr 100 mg PO DAILY Spiriva Respimat 2.5 mcg/actuation mist 2 puff inhalation DAILY albuterol sulfate 8.5 GM HFA aerosol inhaler 2 puff Inhalation Q4H PRN PRNQty: 1 0RF (DME) AeroChamber Plus Z Stat Sm Msk 1 EACH spacer 1 ea Miscellaneous DAILY PRN Qty: 1 0RF Discharge Instructions Instructions: COPD Exacerbation, Adult ED Referrals: Susana Meyers PA [Primary Care Provider] - 1 week Discharge Data Discharge Physician: Mary Jo Goff [facility] General Date/Time Provider Initiated Documentation: 08/17/24 10:32. HPI Narrative: 59-year-old female with history of COPD presents for evaluation of cough. Patient has had a harsh nonproductive cough for the last 2 weeks. She has been using her inhaler at home without any improvement. Denies any recent oral steroid or antibiotic use. She states that she has tried multiple [id number] regimens without any improvement. She denies any fevers or chills. No nausea or vomiting. No abdominal pain. No leg pain or swelling. Related Data Home Medications ?Medication ?Instructions ?Recorded ?Confirmed albuterol sulfate 90 mcg/actuation 2 puff inhalation Q4H PRN PRN ##1 03/30/14 08/17/24 aerosol inhaler inhalational spacing device ##1 03/30/14 08/17/24 (AeroChamber Plus Z Stat Small Mask) tiotropium bromide 2.5 2 puff inhalation DAILY 06/23/23 05/18/25 mcg/actuation mist for inhalation (Spiriva Respimat) fluticasone propionate 115 2 puff inhalation BID #12 grams 09/28/22 08/17/24 mcg-salmeterol 21 mcg/actuation HFA inhaler (Advair HFA) bupropion HCl 100 mg tablet,12 hr 100 mg PO DAILY 08/01/24 08/17/24 sustained-release (Wellbutrin SR) meloxicam 7.5 mg tablet 7.5 mg PO BID PRN 08/01/24 08/17/24 venlafaxine 75 mg capsule,extended 75 mg PO DAILY 08/01/24 08/17/24 release 24 hr doxycycline hyclate 100 mg capsule 100 mg PO BID #14 caps 08/17/24 prednisone 50 mg tablet 50 mg PO DAILY #5 tabs 08/17/24 Previous Rx's ?Medication ?Instructions ?Recorded albuterol sulfate 90 mcg/actuation 2 puff inhalation Q4H PRN PRN ##1 03/30/14 aerosol inhaler inhalational spacing device ##1 03/30/14 (AeroChamber Plus Z Stat Small Mask) fluticasone propionate 115 2 puff inhalation BID #12 grams 09/28/22 mcg-salmeterol 21 mcg/actuation HFA inhaler (Advair HFA) doxycycline hyclate 100 mg capsule 100 mg PO BID #14 caps 08/17/24 prednisone 50 mg tablet 50 mg PO DAILY #5 tabs 08/17/24 Allergies Allergy/AdvReac Type Severity Reaction Status Date / Time No Known Allergies Allergy Unverified 08/14/24 09:22 General Stated Complaint: RespSymp SHI: 3 Review of Systems Narrative: Remainder of review of systems otherwise negative except for as noted in the HPI x 10. Exam Narrative Exam Narrative: General: non-toxic, no respiratory distress, comfortable HEENT: normocephalic, atraumatic, lids and lashes normal, PERRL, EOMI, anicteric sclera, TMs clear bilaterally, moist oral mucosa Card: regular rate and rhythm, S1S2, no murmurs, rubs, or gallops Lungs: Decreased air exchange, diffuse rhonchi and wheezes throughout, no rales or retractions, harsh cough, able to speak in full sentences Abd: soft, non-tender, non-distended, normal bowel sounds, no rebound or guarding, no peritoneal signs Musculoskeletal: full range of motion of arms and legs, no tenderness to palpation. no clubbing, cyanosis, or edema Neurologic: appropriate for age, strength normal Psych: alert and oriented Skin: no petechiae, no lesions, warm and dry Course Vital Signs Vital signs: Vital Signs Temperature 36.9 C 08/17/24 10:27 Pulse 105 H 08/17/24 10:27 Respiratory Rate 22 08/17/24 10:27 Blood Pressure 137/86 08/17/24 10:27 Pulse Oximetry 93 08/17/24 10:27 Temperature 36.9 C 08/17/24 10:27 Pulse 105 H 08/17/24 10:27 Respiratory Rate 22 08/17/24 10:27 Blood Pressure 137/86 08/17/24 10:27 Pulse Oximetry 93 08/17/24 10:27 Oxygen Delivery Method Room Air 08/17/24 10:27 Oxygen Flow Rate 0 08/17/24 10:27 Pain Level 0 08/17/24 10:27 Medical Decision Making 59-year-old female with history of COPD presents for evaluation of 2 weeks. Patient does have lung sounds are diminished with diffuse wheezes and rhonchi. Patient declines nebulizer treatment and chest x-ray in the emergency department. She is agreeable to start steroids and antibiotic. She will continue using her inhaler as needed. She understands indications to return. Quality:SDOH Health Related Social Needs: No Data to Display PFSH All Active Problems Acute exacerbation of chronic obstructive pulmonary disease (COPD) (Acute) Asthma-COPD overlap syndrome (Acute) Former smoker (Acute) Lumbar back pain (Acute) with radiculopathy Smoker (Acute) Prediabetes (Acute) Lumbosacral spondylosis without myelopathy (Acute) COPD (chronic obstructive pulmonary disease) (Acute) Screening for colon cancer (Acute) Medical History Guaiac positive stools Cyst, jaw Rectal bleeding Weight loss Depression Ovarian cyst Lumbar radiculopathy Surgical History tubal ligation left oophorectomy and salpingectomy (cysts) Family History Sister Heart disease Valvular heart disease Daughter No problems noted. Daughter No problems noted. Social History Smoking/Tobacco Use Status: Current every day Tobacco Type: cigarettes Smoking packs per day: 0.25 Smoking cigarettes per day: 5.0 Years smoked: 42 Smoking pack-years: 10.50 Smoking risk assessment performed?: Yes Alcohol Intake: current Alcohol Intake frequency: holidays/special occasions only Drug use: Never Substance use type: does not use Do you feel safe at home: Yes Do you feel safe in your relationship?: Yes Additional Social history: Down to 3 cigarettes a day.
[2024-08-17] MEDS: predniSONE 40 MG, predniSONE 10 MG 50 MG PO (10:51)
[2024-08-17] MEDS: Doxycycline Hyclate 100 MG CAP PO (10:51)
[2024-08-17 10:55] VITALS: BP 132/72; PULSE 102; RESP 20; O2SAT 93
== END 2024-08-17 10:57 | disposition home or self-care (01) ==
PROVIDERS: Emergency Provider Emergency Medicine Emergency Medical Services; PCP Physician Assistant Medical
DX: J44.1 Chronic obstructive pulmonary disease with (acute) exacerbation (principal); F17.210 Nicotine dependence, cigarettes, uncomplicated
CPT/HCPCS: 99283; J7512

== ENCOUNTER 2024-09-25 07:19 | Outpatient (CLI) | payer BC, SELFPAY ==
[2024-09-25] VITALS (14 sets, daily range): BP systolic 146–167; BP diastolic 88–109; PULSE 94–108; RESP 18–24; TEMP 36.4; O2SAT 93–98
[2024-09-25] MEDS: Midazolam 2 MG/2 ML VIAL IVP (08:20)
[2024-09-25] MEDS: fentaNYL 100 MCG/2 ML VIAL IJ (08:20)
[2024-09-25] MEDS: Lactated Ringers 500 ML 30 ML IV (08:34)
--- NOTE | 2024-09-25 08:48 | DI.RAD_ITS ---
Exam(s) XR PAIN CLINIC LUMBAR SP 2V EXAM: XR PAIN CLINIC LUMBAR SP 2V CLINICAL HISTORY: Dx: Lumbar Spondylosis. TECHNIQUE: Fluoroscopy was provided for the referring physician for guidance with performing pain clinic injection procedure. COMPARISON: No exams were available for comparison FINDINGS: Please see procedure note for details. Fluoro time: 31.3 seconds RADIATION DOSE DELIVERED: grady Mahoney=4.58 mGy
[2024-09-25] MEDS: methylPREDNISolone ACETATE 40 MG/ML VIAL IJ (08:52)
[2024-09-25] MEDS: Bupivacaine 0.5% Pres-Free 10 ML VIAL IJ (08:52)
[2024-09-25] MEDS: Nerve Block Tray 1 EACH MC (08:53)
[2024-09-25] MEDS: Lidocaine 2% Pres-Free 5 ML VIAL IJ (08:53)
--- NOTE | 2024-09-29 07:19 | PDOC.PAIN ---
Date of service: 09/25/24 Time of Service: 09:00 Pain Managment Procedure Note Procedure Note Procedure Note: PROCEDURE NOTE Left LUMBAR RADIOFREQUENCY ABLATION Date of Service: September 25, 2024 Patient:? Susan Harp? Provider:? Adiel Mayer DO, MPH Susan Harp [facility] Left Lumbar Radiofrequency Ablation with the AvMultispans Machine.? Pre Operative Diagnosis: Lumbosacral Spondylosis without Myelopathy ICD-10 M47.816 Post Operative Diagnosis: Same Pre procedure pain; VAS= 6/10 Comments: She had good relief with the left-sided lumbar medial branch blocks PROCEDURE: Radiofrequency Ablation of medial branches - left L3, L4, L5 and lateral branches of bilateral S1. Susan?was interviewed and the medical record was reviewed.? There were no medical, pharmacologic, radiographic or other structural contraindications to attempting fluoroscopically guided LEFT Lumbar Radiofrequency Ablation.?Risks and expected side effects as well as potential benefit of the procedure were reviewed with Susan, and the patient's voiced concerns were addressed.? The printed consent form was signed.? Standard time-out procedure was performed. Susan was brought into the fluoroscopy suite and positioned into the prone position on the fluoroscopy table and allowed to adjust to a position of comfort. A grounding pad was placed on the left abdomen. The sterile field was prepared using chlorhexidine preparation of the skin and sterile draping. Local anesthesia superficial and deep was provided by local infiltration of 2% lidocaine. A 17g 100 mm radiofrequency introducer needle was placed to the planned anatomic targets guided with intermittent fluoroscopy with a perpendicular approach to terminally place at the junction of the superior articular process and the transverse process of the left L4, L5, the base of the sacral ala on the left for the L5 medial branch nerve and the area between base of the sacral ala to the S1 foramen on the left. The stylets were removed and radiofrequency probes with a 4mm active tip were then inserted. Needle tip position of the probes was verified in the AP, oblique, and lateral views. At each site, the medial branch nerve was stimulated at 2 Hz to a maximum 1-2 volts determined to finalize safe needle and electrode placement. The patient was awake and responsive during this portion of the procedure. Each target was anesthetized with 1-2 mL of 2 % Lidocaine for anesthesia for lesioning and then each target was lesioned at 80 degrees Celsius for 2 minutes and 30 seconds. Tissue impedances were noted to be between 250 and 500 Ohms. This was followed with1/4 cc of Depo-Medrol and 1 cc of 0.5% bupivacaine. There was no unusual discomfort expressed by Susan. The needles were withdrawn without difficulty and bandages placed over the needle placement sites, the patient was observed and was without hemodynamic, neurologic, or allergic reactions. Fluoroscopic images were digitally archived. POST PROCEDURE EVALUATION: IMPRESSION: 1. Summary of procedure. Medication given is documented in the MAR. 2. Follow up plan: Susan to contact [facility] as needed.?This procedure may be repeated if the patient achieves at least 50% improvement in pain/function for at least 6 months. 3. Estimated Blood Loss: <5 mls 4. Fluoroscopy time: Documented in the EMR. Follow up plans and appointments were discussed with the Susan. Post procedure instruction was given as documented in nursing documentation and having met discharge criteria, Susan was discharged from the [facility]. This advanced procedure uses cooled radiofrequency energy to safely target the sensory nerves responsible for sending pain signals.1 A radiofrequency generator transmits a small current of Radiofrequency energy through an insulated electrode, or probe, placed within tissue. Ionic heating, produced by the friction of charged molecules, thermally deactivates the nerves responsible for sending pain signals to the brain. Radiofrequency energy heats and cools the tissue at the site of pain. Unlike other Radiofrequency procedures, Coolief circulates water through the device while heating nervous tissue to create a larger treatment area, increasing the opportunity to help with pain. This combination targets the pain-transmitting nerves without excessive heating, leading to pain relief. COMMENTS: No apparent complications. Post-procedure pain: VAS= 1/10. I personally completed the entire procedure. ADIEL MAYER DO, MPH ABPM&R - Subspecialty board certification in Pain Medicine [facility] Coding Conscious Sedation used for procedure: Yes CPT Codes: Single Facet Joint, Lumbar/Sacral cool - 72692J ([id number]~G) Single Facet Joint, Lumbar/Sacral cool each add'l - 61242J ([id number]~G) LT - LEFT SIDE Additional Codes: Date of Service (38583) Date of service: 09/25/24 Diagnoses: Lumbar spondylosis without myelopathy
== END 2024-09-25 07:20 | disposition home or self-care (01) ==
LOC: PC 07:19
PROVIDERS: PCP Physician Assistant Medical; Visit Provider Preventive Medicine Occupational Medicine
DX: M47.816 Spondylosis without myelopathy or radiculopathy, lumbar region (principal)
CPT/HCPCS: 64635; 64636; 72100; J0665; J1010; J2250; J3010